=== PATIENT | female | born 1980 | race Caucasian/White ===

== ENCOUNTER 2023-07-12 11:34 | Emergency (ER) | payer OTHER ==
[~2023-07-12] VITALS: Ht 154.9 cm; Wt 72.7 kg
[2023-07-12 12:32] VITALS: TEMP 98
[2023-07-12] MEDS ORDERED: HydrOXYzine PAMOATE 50 MG CAPSULE PO ONE (13:00)
[2023-07-12] MEDS ORDERED: HYDR-4808 PO (13:36)
[2023-07-12 13:42] VITALS: BP 137/86; PULSE 86; RESP 18
== END 2023-07-12 13:45 | disposition home or self-care (01) ==
LOC: EMS 11:35
DX: F41.9 Anxiety disorder, unspecified (principal); R45.851 Suicidal ideations
CPT/HCPCS: 99285; Z7502; Z7610